=== PATIENT | female | born 1995 | race Caucasian/White ===

== ENCOUNTER → 2024-04-07 08:17 | Outpatient (REF) | payer BC, SELFPAY | LOC: PNTC 08:17 | PROVIDERS: ATTENDING PHYSICIAN Obstetrics & Gynecology | DX: O99.320 Drug use complicating pregnancy, unspecified trimester (principal) | CPT/HCPCS: 76815 ==

== ENCOUNTER → 2024-04-14 10:06 | Outpatient (REF) | payer BC, SELFPAY ==
--- NOTE | 2024-04-14 09:46 | PN.DIAED06 ---
Meal Plans - Regular
- Meal Plan
Diabetic Meal Plan Name: 2200 calories
Breakfast - Total Carbohydrate (grams): 60
Breakfast - Starch Carbohydrate: 0
Breakfast - Fruit Carbohydrate: 0
Breakfast - Milk Carbohydrate: 0
Breakfast - Nonstarchy Vegetables: Yes
Breakfast - Meat/Protein: 1
Breakfast - Fat: 2
Morning Snack - Total Carbohydrate (grams): 30
Morning Snack - Starch Carbohydrate: 0
Morning Snack - Fruit Carbohydrate: 0
Morning Snack - Milk Carbohydrate: 0
Morning Snack - Nonstarchy Vegetables: Yes
Morning Snack - Meat/Protein: 0.5
Morning Snack - Fat: 0
Lunch - Total Carbohydrate (grams): 45
Lunch - Starch Carbohydrate: 0
Lunch - Fruit Carbohydrate: 0
Lunch - Milk Carbohydrate: 0
Lunch - Nonstarchy Vegetables: Yes
Lunch - Meat/Protein: 3
Lunch - Fat: 2
Afternoon Snack - Total Carbohydrate (grams): 30
Afternoon Snack - Starch Carbohydrate: 0
Afternoon Snack - Fruit Carbohydrate: 0
Afternoon Snack - Milk Carbohydrate: 0
Afternoon Snack - Nonstarchy Vegetables: Yes
Afternoon Snack - Meat/Protein: 0.5
Afternoon Snack - Fat: 0
Dinner - Total Carbohydrate (grams): 45
Dinner - Starch Carbohydrate: 0
Dinner - Fruit Carbohydrate: 0
Dinner - Milk Carbohydrate: 0
Dinner - Nonstarchy Vegetables: Yes
Dinner - Meat/Protein: 4
Dinner - Fat: 2
Evening Snack - Total Carbohydrate (grams): 15
Evening Snack - Starch Carbohydrate: 0
Evening Snack - Fruit Carbohydrate: 0
Evening Snack - Milk Carbohydrate: 0
Evening Snack - Nonstarchy Vegetables: Yes
Evening Snack - Meat/Protein: 0
Evening Snack - Fat: 0
Meal Plan - Gestational
- Breakfast
Gestational Diabetes Meal Plan Name: 2000 calories
Breakfast - Total Carbohydrate (grams): 45
Breakfast - Starch Carbohydrate: 2
Breakfast - Fruit Carbohydrate: 0
Breakfast - Milk Carbohydrate: 1
Breakfast - Nonstarchy Vegetables: Yes
Breakfast - Meat/Protein: 1
Breakfast - Fat: 2
- Morning Snack
Morning Snack - Total Carbohydrate (grams): 30
Morning Snack - Starch Carbohydrate: 1
Morning Snack - Fruit Carbohydrate: 0
Morning Snack - Milk Carbohydrate: 1
Morning Snack - Nonstarchy Vegetables: Yes
Morning Snack - Meat/Protein: 0
Morning Snack - Fat: 0
- Lunch
Lunch - Total Carbohydrate (grams): 45
Lunch - Starch Carbohydrate: 1
Lunch - Fruit Carbohydrate: 1
Lunch - Milk Carbohydrate: 1
Lunch - Nonstarchy Vegetables: Yes
Lunch - Meat/Protein: 2
Lunch - Fat: 2
- Afternoon Snack
Afternoon Snack - Total Carbohydrate (grams): 30
Afternoon Snack - Starch Carbohydrate: 1
Afternoon Snack - Fruit Carbohydrate: 1
Afternoon Snack - Milk Carbohydrate: 0
Afternoon Snack - Nonstarchy Vegetables: Yes
Afternoon Snack - Meat/Protein: 1
Afternoon Snack - Fat: 0
- Dinner
Dinner - Total Carbohydrate (grams): 45
Dinner - Starch Carbohydrate: 2
Dinner - Fruit Carbohydrate: 1
Dinner - Milk Carbohydrate: 0
Dinner - Nonstarchy Vegetables: Yes
Dinner - Meat/Protein: 2
Dinner - Fat: 2
- Evening Snack
Evening Snack - Total Carbohydrate (grams): 45
Evening Snack - Starch Carbohydrate: 1
Evening Snack - Fruit Carbohydrate: 1
Evening Snack - Milk Carbohydrate: 1
Evening Snack - Nonstarchy Vegetables: Yes
Evening Snack - Meat/Protein: 1
Evening Snack - Fat: 0
--- NOTE | 2024-04-14 12:42 | PN.DE ---
Diabetes Education
- -
Met with Ms. Bartlett today for medical nutrition therapy. She is currently 30 weeks gestation however, she did not realize she was until 27 weeks. 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 Her last
dose of Prednisone was 03/07/2024. This is Aj's first and denies any family history of diabetes.
I reviewed glucose metabolism and insulin resistance during and the need to keep blood glucose levels well controlled to prevent complications to the baby during and after . Target fasting and 2 hour post meal parameters were
discussed and highlighted in written material she was provided. We discussed the increased risk for Aj to develop T2DM in the future and reinforced the importance of a healthy diet and exercise post . A 2,000 calorie gestational meal
plan was provided and discussed in detail. Aj has a good understanding of healthy nutrition and follows an organic, healthy meal plan. The importance of physical activity in helping to decrease blood glucose levels were discussed. Currently
Aj does not have activity restrictions and will increase her movement and walking throughout the day.
Aj had contacted her insurance prior to the appointment to discuss diabetes supplies. [employer] called back during the visit and we confirmed she needs to use a Contour One glucometer and contour test strips and her pharmacy is
capitated to [facility]. I instructed Aj on how to check a blood sugar on the Contour Next EZ glucometer and highlighted the differences she would see in the Contour One meter. I also recommended she review the step by step directions and/or contact
the office if she has any questions. She demonstrated proper technique with doing a fingerstick and her blood glucose 3 hours after breakfast was 77 mg/dL. I reviewed the times to check her blood sugar at home and to fax a copy of her results to
Zara at [facility] every Sunday. I also gave Aj the sample Contour Next glucometer to use until she was able to obtain the new meter at her pharmacy.
== END ==
LOC: DES 10:06
PROVIDERS: ATTENDING PHYSICIAN Obstetrics & Gynecology
DX: O24.419 Gestational diabetes mellitus in pregnancy, unspecified control (principal)
CPT/HCPCS: 99078

== ENCOUNTER → 2024-04-17 08:00 | Outpatient (REF) | payer BC, SELFPAY | LOC: PNTC 08:00 | PROVIDERS: ATTENDING PHYSICIAN Obstetrics & Gynecology | DX: Z34.03 Encounter for supervision of normal first pregnancy, third trimester (principal) | CPT/HCPCS: 36415; 86850; 86900; 86901; 96372; J2790 ==

== ENCOUNTER 2024-06-26 08:37 | Inpatient (IN) | payer BC, SELFPAY ==
[2024-06-26 08:45] VITALS: BP 129/68; BMI 22.0
[2024-06-26] MEDS: LR 1000 IV ×2 (10:00→11:00)
[2024-06-26] MEDS: FENTANYL/BUPIVACAINE 100 EPIDURAL (10:24)
[2024-06-26] MEDS: SUBLIMAZE 100 MCG EPIDURAL (10:24)
[2024-06-26 10:25] LABS: % Basophils 0.4 % (0-2); % Eosinophils 0.2 % (0-6); % Immature Granulocytes 0.4 % (0-0.5); % Lymphocytes 16.1 % (20.5-51.1); % Monocytes 7.1 % (1.7-9.3); % Neutrophils 75.8 % (42.2-75.2); Absolute Basophils 0.1 10^3/uL (0-0.2); Absolute Immature Granulocytes 0.1 10^3/uL (0-0.05); Absolute Monocytes 0.9 10^3/uL (0.1-0.6); Absolute Neutrophils 9.4 10^3/uL (1.4-6.5); Hematocrit 34.6 % (37.0-47.0); Hemoglobin 12.1 g/dL (12.0-16.0); Mean Corpuscular Hgb 33.1 pg (27.0-31.0); Mean Corpuscular Volume 94.5 fL (81.0-99.0); Mean Platelet Volume 10.4 fL (7.4-10.4); Nucleated Red Blood Cells % 0 %; Platelet Count 253 10^3/uL (130-400); Red Blood Cell Count 3.66 10^6/uL (4.20-5.40); Red Cell Dist. Width 12.9 % (11.5-14.5); White Blood Cell Count 12.5 10^3/uL (4.8-10.8)
[2024-06-26 10:30] LABS: ALT (SGPT) 14 U/L (0-35); AST (SGOT) 26 U/L (14-36); Alkaline Phosphatase 243 U/L (38-126); Blood Urea Nitrogen 12 mg/dl (7-17); Calcium 9.2 mg/dl (8.4-10.2); Carbon Dioxide 17 mmol/L (22-30); Chloride 104 mmol/L (98-107); Estimated Creatinine Clearance 111 ml/min; Glucose 79 mg/dl (70-99); Potassium 3.8 mmol/L (3.5-5.1); Sodium 131 mmol/L (135-145); Total Bilirubin 0.9 mg/dl (0.2-1.3); Total Protein 7.5 g/dl (6.3-8.2); eGFR > 60.00
[2024-06-26] MEDS: PITOCIN 30 UNITS/NSS 500 ML IV (12:40)
[2024-06-27 04:36] LABS: Hematocrit 28.7 % (37.0-47.0)
[2024-06-27 13:48] LABS: Syphilis/T. pallidum Ab Reflex Negative (Negative)
[2024-06-27] MEDS: FEOSOL 325 MG PO (13:52)
[2024-06-27] MEDS: MOTRIN 600 MG PO (17:52)
[2024-06-28] MEDS: MOTRIN 600 MG PO ×2 (00:01→06:19)
[2024-06-28] MEDS: SENOKOT-S 1 TABLET PO (09:30)
[2024-06-28] MEDS: FEOSOL 325 MG PO (09:30)
== END 2024-06-28 10:30 | disposition home or self-care (01) | DRG 807 ==
LOC: LDRP 08:37
PROVIDERS: ADMITTING PHYSICIAN Obstetrics & Gynecology; FAMILY PHYSICIAN Family Medicine
PROC: 10E0XZZ Delivery of Products of Conception, External Approach (ICD-10-PCS; 2024-06-26)
PROC: 0UQMXZZ Repair Vulva, External Approach (ICD-10-PCS; 2024-06-26)
PROC: 0HQ9XZZ Repair Perineum Skin, External Approach (ICD-10-PCS; 2024-06-26)
DX: O77.0 Labor and delivery complicated by meconium in amniotic fluid (principal); Z37.0 Single live birth; Z3A.40 40 weeks gestation of pregnancy; O70.0 First degree perineal laceration during delivery; O24.420 Gestational diabetes mellitus in childbirth, diet controlled
CPT/HCPCS: 88307; 80053; 85014; 85018; 85025; 86780; 86850; 86870; 86900; 86901